=== PATIENT | male | born 1980 | race Caucasian/White ===

== ENCOUNTER 2019-04-22 13:13 | Emergency (ER) | payer SELFPAY ==
[~2019-04-22] VITALS: Ht 200.7 cm; Wt 158.8 kg
[~2019-04-22 13:13] MED LIST: ACHD5005 PO; SILV20CR14 TP
[2019-04-22] MEDS ORDERED: LIDO30CR44 TP (13:41)
[2019-04-22] MEDS ORDERED: DOCU-143 PO (13:41)
--- NOTE | 2019-04-22 13:41 | ED GI ---
General Chief Complaint: Rect Problems Stated Complaint: RECTAL PAIN Source of Information: Patient Exam Limitations: No Limitations History of Present Illness Date Seen by Provider: Apr 22, 2019 Time Seen by Provider: 13:36 Initial Comments To ER with rectal pain for 4 weeks. Sudden in onset, describes as a sharp stinging pain worse immediately after a bowel movement. [facility] and was given a hemorrhoid cream that he would not let the provider look to evaluate area pain is been present for 4 weeks with no improvement. Initially, he did have some blood on the toilet paper with wiping. Timing/Duration: 1-2 Days Severity/Quality: Moderate Radiation: No Radiation Activities at Onset: None Associated Symptoms: Nausea/Vomiting Allergies and Home Medications Allergies Coded Allergies: No Known Drug Allergies (Verified Allergy, Unknown, 07/22/07) Home Medications Docusate Sodium 100 Mg Capsule, 100 MG PO DAILY Prescribed by: DAMIEN IVERSON on 04/22/19 1341 Hydrocodone Bit/Acetaminophen 1 Each Tablet, 1-2 EACH PO Q4H PRN for PAIN Prescribed by: JORGE GARCIA on 10/15/15 0517 Lidocaine 30 Gm Cream..g., 1 GM TP TID PRN for PAIN-MILD TO MODERATE Apply to anal fissure 3 times a day when necessary pain Prescribed by: DAMIEN IVERSON on 04/22/19 1341 Silver Sulfadiazine 20 Gm Cream..g., 20 GM TP BID Prescribed by: JORGE GARCIA on 10/15/15 0519 Patient Home Medication List Home Medication List Reviewed: Yes Review of Systems Review of Systems Constitutional: see HPI EENTM: No Symptoms Reported Respiratory: No Symptoms Reported Cardiovascular: No Symptoms Reported Gastrointestinal: See HPI Genitourinary: No Symptoms Reported Musculoskeletal: no symptoms reported Skin: no symptoms reported Psychiatric/Neurological: No Symptoms Reported Endocrine: No Symptoms Reported Hematologic/Lymphatic: No Symptoms Reported Past Tgeqose-Dpvrpa-Buogvg Hx Patient Social History Recent Foreign Travel: No Contact w/Someone Who Travel: No Seasonal Allergies Seasonal Allergies: No Past Medical History Appendectomy, Vasectomy Reproductive Disorders: No Physical Exam Vital Signs Vital Signs - First Documented 04/22/19 13:22 Temp 98.3 Pulse 78 Resp 18 B/P (MAP) 163/110 (127) Pulse Ox 98 O2 Delivery Room Air Capillary Refill : Height/Weight/BMI Height: 6'4" Weight: 270lbs. oz. 122.993683uu; BMI Method:Estimated General Appearance: WD/WN, no apparent distress Respiratory: no respiratory distress, no accessory muscle use Gastrointestinal: normal bowel sounds, non tender, soft Rectal: other (there is a subacute anal fissure posteriorly at the midline) Extremities: normal range of motion, non-tender Neurologic/Psychiatric: alert, normal mood/affect, oriented x 3 Skin: normal color, warm/dry Progress/Results/Core Measures Results/Orders Vital Signs/I&O 04/22/19 13:22 Temp 98.3 Pulse 78 Resp 18 B/P (MAP) 163/110 (127) Pulse Ox 98 O2 Delivery Room Air Departure Communication (Admissions) 1082-Hansa called in rx for Diltiazem 2% ointment topically to anus TID x4 weeks. Impression Primary Impression: Anal fissure Disposition: 01 HOME, SELF-CARE Condition: Stable Departure-Patient Inst. Decision time for Depature: 13:38 Referrals: NO,LOCAL PHYSICIAN (PCP) Primary Care Physician Patient Instructions: Anal Fissure Add. Discharge Instructions: 1. When wiping after a bowel movement do so very gently, or better yet don't wipe at all and get into the shower and rinse off. This is a tear in the skin at the anus so any aggressive wiping or stretching with a large bowel movement will make this worse and delay healing. As such she need to take a stool softener once a day and increase your water intake. Apply the ointment (Diltiazem ointment) 3 times daily for 3 weeks. Insert this to a depth up to the first knuckle on your pointer finger. You can do the same with the lidocaine cream as needed for pain control. All discharge instructions reviewed with patient and/or family. Voiced understanding. Scripts Docusate Sodium (Colace) 100 Mg Capsule 100 MG PO DAILY, #30 CAP Prov: DAMIEN IVERSON APRN 04/22/19 Lidocaine (Lidocaine) 30 Gm Cream..g. 1 GM TP TID PRN for PAIN-MILD TO MODERATE, #1 TUBE Apply to anal fissure 3 times a day when necessary pain Prov: DAMIEN IVERSON APRN 04/22/19 DAMIEN IVERSON APRN Apr 22, 2019 13:41
[2019-04-22 13:50] VITALS: BP 163/110
== END 2019-04-22 13:50 | disposition home or self-care (01) ==
LOC: EDUNIT# 13:13 → ER 13:14
DX: K60.2 Anal fissure, unspecified (principal); Z90.49 Acquired absence of other specified parts of digestive tract
CPT/HCPCS: 99282

== ENCOUNTER 2019-05-16 15:14 | Emergency (ER) | payer OTHER ==
[~2019-05-16] VITALS: Ht 200.7 cm; Wt 158.8 kg
[~2019-05-16 15:14] MED LIST changes: +DOCU-143 PO; +LIDO30CR44 TP
--- OUTSIDE RECORDS SUMMARY | 2019-05-16 15:20 | XMS REPORT ---
Author Author ROSANA Thornton [facility] Address Unknown Care Team Providers Care Relay Shop Supervisor Name Role Phone ROSANA Thornton Unavailable PROBLEMS Unknown Problems ALLERGIES Substance Reaction Event Type Date Status N.K.D.A. Unknown Non Drug Allergy Aug, Unknown SOCIAL HISTORY No smoking Hx information available PLAN OF CARE Activity Details Follow Up prn Reason:rct/crown VITAL SIGNS Blood pressure systolic 158 mmHg 2016-09-09 Blood pressure diastolic 96 mmHg 2016-09-09 MEDICATIONS Medication Instructions Dosage Frequency Start Date End Date Duration Status Amoxicillin 500 MG Orally Four times a day 1 capsule 6h Aug, Sep, 7 days Active Flomaton 5-325 MG Orally every 6 hrs 1 tablet as needed 6h Aug, Sep, 4 days Active RESULTS No Results PROCEDURES Procedure Date Ordered Related Diagnosis Body Site LTD ORAL EVALUATION - PROBLEM FOCUS Sep 09, 2016 INTRAORL-PERIAPICAL 1 FILM [id number] Sep 09, 2016 IMMUNIZATIONS No Known Immunizations
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
[2019-05-16] MEDS ORDERED: LIDOCAINE UROJET 2% GEL 10 ML PKG ONE (15:23)
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
--- NOTE | 2019-05-16 15:42 | NUR ---
PO PAIN MEDS GIVEN INFORMED THAT MILITARY POLICE OFFICER WOULD BE APX 30MIN -45 AFTER MEDS HAVE A CHANCE TO WORK TO EXAM HIM.
[2019-05-16] MEDS ORDERED: oxyCODONE/APAP 5/325MG (PERCOCET 5) TABLET PO ONE (15:45)
[2019-05-16] MEDS ORDERED: LIDOCAINE UROJET 2% GEL 10 ML PKG TOP ONE (15:45)
[2019-05-16] MEDS ORDERED: ALPR0.5T PO (16:27)
[2019-05-16 16:36] VITALS: BP 184/110
== END 2019-05-16 16:36 | disposition home or self-care (01) ==
LOC: EDUNIT# 15:14 → ER 15:16
DX: K62.89 Other specified diseases of anus and rectum (principal); Z90.49 Acquired absence of other specified parts of digestive tract
CPT/HCPCS: 99284

== ENCOUNTER 2019-06-02 12:30 | Outpatient (CLI) | payer OTHER ==
[~2019-06-02] VITALS: Ht 200.7 cm; Wt 158.8 kg
[~2019-06-02 12:30] MED LIST changes: +ALPR0.5T PO
== END 2019-06-02 12:44 | disposition home or self-care (01) ==
LOC: PREOP 12:30
PROVIDERS: ATTEND Surgery
DX: Z01.818 Encounter for other preprocedural examination (principal)

== ENCOUNTER 2019-06-08 08:13 | Day surgery (SDC) | payer OTHER ==
[2019-06-08] VITALS (7 sets, daily range): BP systolic 125–173; BP diastolic 80–106
[~2019-06-08] VITALS: Ht 200.7 cm; Wt 158.8 kg
[2019-06-08] MEDS ORDERED: LACTATED RINGERS 1,000 ML IV ONE (08:23)
[2019-06-08] MEDS ORDERED: LACTATED RINGERS 1,000 ML IV STA (08:50)
[2019-06-08] MEDS ORDERED: MIDAZOLAM 2 MG/2 ML (VERSED) VIAL ONE (09:00)
[2019-06-08] MEDS ORDERED: PROPOFOL INJECTION 50 ML IV ONE ×2 (09:00→09:03)
--- NOTE | 2019-06-08 09:07 | Progress Note-Pre Operative ---
Pre-Operative Progress Note H&P Reviewed The H&P was reviewed, patient examined and no changes noted. Date Seen by Provider: Jun 08, 2019 Time Seen by Provider: 09:07 Date H&P Reviewed: Jun 08, 2019 Time H&P Reviewed: 09:07 Pre-Operative Diagnosis: blood in stool, anal fissure IVETT LUCERO DO Jun 08, 2019 09:07
--- NOTE | 2019-06-08 09:45 | Progress Note-Post Operative ---
Post-Operative Progess Note Surgeon (s)/Pull Tab Dealer (s) Surgeon IVETT LUCERO DO Pull Tab Dealer: na Pre-Operative Diagnosis blood in stool, anal fissure Post-Operative Diagnosis healing fissure, colon polyps Procedure & Operative Findings Date of Procedure 06/08/19 Procedure Performed/Findings colonoscopy c hot bx polypectomy x 2 Anesthesia Type per saturation diver Estimated Blood Loss Estimated blood loss (mL): none Specimens/Packing Specimens Removed transverse colon polyp, rectal polyp IVETT LUCERO DO Jun 08, 2019 09:45
--- NOTE | 2019-06-08 09:47 | Discharge Inst-Simple/Standard ---
Discharge Inst-Standard Patient Instructions/Follow Up Plan of Care/Instructions/FU: 2 weeks Quintin High fiber diet Diltiazem cream as instructed. Activity as Tolerated: Yes Discharge Diet: Regular Diet (high fiber) IVETT LUCERO DO Jun 08, 2019 09:47
--- NOTE | 2019-06-08 13:01 | OPERATIVE REPORT ---
DATE OF SERVICE: 06/08/2019 PREOPERATIVE DIAGNOSES: Blood in stool, anal fissure. POSTOPERATIVE DIAGNOSES: Anal fissure, colon polyps. PROCEDURE: Colonoscopy with hot biopsy polypectomy x2. SURGEON: Ivett Ribeiro DO ANESTHESIA: Per CREDIT RELATIONSHIP MANAGER. ESTIMATED BLOOD LOSS: None. COMPLICATIONS: None. SPECIMENS: Transverse colon polyp and rectal polyp. INDICATIONS: The patient is a 39-year-old male with blood in stool. He also was found to have anal fissure. The patient understands the risks and benefits to evaluate for other causes of bleeding. He wishes to proceed. Consent was signed in the chart. DESCRIPTION OF PROCEDURE: The patient was taken to the endoscopy suite, placed in the left lateral recumbent position. Timeout was performed. Digital rectal exam was performed. Posterior anal fissure noted. No other palpable polyps, masses or ulcerations. Scope was inserted in the rectum and advanced all the way to the cecum with minimal difficulty. Prep was adequate. Scope was then slowly retracted back. There were no polyps, mass or ulceration of the cecum and ascending colon. In the transverse colon, a small polyp was present to which hot biopsy polypectomy was performed. Scope was then continuously retracted back. There were no polyps, masses or ulcerations within the remainder of the transverse, descending and sigmoid colon. In the rectum, a small polyp was present to which hot biopsy polypectomy was performed. Scope was retroflexed noting no other pathology. Scope was returned to its normal position, slowly withdrawn until completely removed. The patient tolerated the procedure well without any complications, taken to recovery room in stable condition. RECOMMENDATIONS: The patient will continue on current medications for fissure, increase fiber diet. He will need repeat colonoscopy in 5 years due to the polyps. He will follow up in the office in 2 weeks to reevaluate fissure and discuss pathology. Job ID: [id number] DocumentID: [id number] Dictated Date: 06/08/2019 09:49:22 Can Patcher Date: 06/08/2019 13:00:47 Dictated By: IVETT RIBEIRO DO
--- NOTE | 2019-06-08 15:29 | Anesthesia-General Post-Op ---
MAC Patient Condition Mental Status/LOC: Same as Preop Cardiovascular: Satisfactory Nausea/Vomiting: Absent Respiratory: Satisfactory Pain: Controlled Complications: Absent Post Op Complications Complications None Follow Up Care/Instructions Patient Instructions None needed. Anesthesiology Discharge Order Discharge Order Patient was seen after the procedure and he was doing well, no complaints, stable vital signs, no apparent adverse anesthesia problems. ALBERT NG DO Jun 08, 2019 15:29
== END 2019-06-08 10:50 | disposition home or self-care (01) ==
LOC: SDC 08:13
PROVIDERS: ATTEND Surgery
DX: K63.5 Polyp of colon (principal); K62.1 Rectal polyp; K92.1 Melena; K60.2 Anal fissure, unspecified; K62.89 Other specified diseases of anus and rectum; Z87.891 Personal history of nicotine dependence; Z79.899 Other long term (current) drug therapy; Z90.49 Acquired absence of other specified parts of digestive tract
CPT/HCPCS: 88305

== ENCOUNTER → 2020-11-17 | Outpatient (CLI) | payer SELFPAY | LOC: CARD 09:10 | PROVIDERS: ATTEND Nurse Practitioner Family | DX: I11.9 Hypertensive heart disease without heart failure (principal) | CPT/HCPCS: 93306 ==

== ENCOUNTER → 2021-02-07 | Outpatient (CLI) | payer SELFPAY | LOC: CARD 09:43 | PROVIDERS: ATTEND Internal Medicine Cardiovascular Disease | DX: R07.9 Chest pain, unspecified (principal) | CPT/HCPCS: 93351 ==